=== PATIENT | female | born 1955 | race Caucasian/White ===

== ENCOUNTER 2017-10-30 16:17 | Emergency (ER) | payer OTHER, SELFPAY ==
[2017-10-30 16:23] VITALS: BP 155/85; PULSE 71; RESP 20; TEMP 36.9; O2SAT 95; BMI 28.7
--- NOTE | 2017-10-30 17:19 | [facility].EDBACK ---
ED Disposition Clinical Impression: Sciatica Qualifiers: Laterality: left Qualified Code(s): M54.32 - Sciatica, left side Disposition: Home, Self-Care Condition on Discharge: Good Instructions: DI for Low Back Pain Additional Instructions: Please take the medication prescribed as directed, if not better follow up with Dr Sampson. Discontinue the chiropractor sessions for now. Take Motrin 600mg every 6 hrs as needed for pain. Prescriptions: Tramadol HCl [Ultram 50mg tablet] 50 mg PO QIDP PRN #8 tab PRN Reason: Moderate Pain Referrals: Georgette Flores [Primary Care Provider] - Emanuel Sampson MD [Staff Physician] - Time of Disposition: 17:24 - Critical Care Critical Care Time: No Attestation: On 10/30/17, the high probability of a clinically significant, sudden or life threatening deterioration of the following system(s) required my full and direct attention, intervention and personal management. The time I documented below is in addition to time spent performing reported procedures but includes the following listed in this critical care notation. Medical Decision Making - Medical Records Medical records reviewed: Yes: I reviewed the patient's medical records. - Compa Inquiry Pt receiving controlled substance: No Vital Signs: 10/30/17 16:23 10/30/17 17:58 10/30/17 18:22 Temperature 98.4 F 98.8 F Temperature Source Oral Oral Pulse Rate 69 Pulse Rate [Right Brachial] 71 73 Respiratory Rate 20 18 20 Blood Pressure 149/69 Blood Pressure [Right Arm] 155/85 140/73 Blood Pressure Mean [Right Arm] 108 95 Blood Pressure Source Automatic Cuff Blood Pressure Source [Right Arm] Automatic Cuff Automatic Cuff Blood Pressure Position Sitting Blood Pressure Position [Right Arm] Sitting Sitting 02 Sat by Pulse Oximetry 95 95 Oxygen Delivery Method Room Air Room Air Room Air - Lab Data Lab Results 10/30/17 17:30: Urine Color Yellow, Urine Appearance Clear, Urine pH 5.5, Ur Specific [place] <= 1.005, Urine Protein Negative, Urine Glucose (UA) Negative, Urine Ketones Negative, Urine Blood Negative, Urine Nitrate Negative, Urine Bilirubin Negative, Urine Urobilinogen 0.2, Ur Leukocyte Esterase Negative, Urine RBC None, Urine WBC Occasional, Ur Squamous Epith Cells 5-10, Urine Bacteria Trace Orders (Tests/Meds): ED MEDICATIONS Discontinued Medications Generic Name Dose Route Start Last Admin Trade Name Barry PRN Reason Stop Dose Admin Meperidine HCl 25 mg 10/30/17 17:46 10/30/17 17:52 Meperidine 25mg/Ml 1ml Syringe IM 10/30/17 17:47 25 mg ONCE ONE Administration Methylprednisolone Acetate 80 mg 10/30/17 17:26 10/30/17 17:51 Depo-Medrol 80mg/Ml Vial IM 10/30/17 17:27 80 mg ONCE ONE Administration Morphine Sulfate 6 mg 10/30/17 17:44 Morphine 8mg/Ml Syringe IM 10/30/17 17:45 ONCE ONE Ondansetron HCl 6 mg 10/30/17 17:26 Zofran 4mg/2ml Vial IM 10/30/17 17:27 ONCE ONE Ondansetron HCl 4 mg 10/30/17 17:44 Zofran 4mg/2ml Vial IM 10/30/17 17:45 ONCE ONE Ondansetron HCl 4 mg 10/30/17 17:47 10/30/17 17:52 Zofran 4mg Odt SL 10/30/17 17:48 4 mg ONCE ONE Administration - Reevaluation(s) Time: 17:20 Reevaluation #1: Upon evaluation patient appears medically stable, improving, responding to the meds so far given. Instructed patient to follow-up with Dr. Sampson if not better within 2 days. Back Pain HPI - General Chief Complaint: Back Pain/Injury Stated Complaint: Back Pain Time Seen by Provider: 10/30/17 16:40 Mode of Arrival: Wheelchair Limitations: No Limitations Description of Symptoms (Recalled from ER Triage Doc. by RN): Pt reports L sided lower back pain radiating down L leg. Pt reports has been having pain x2 weeks, states went to the chiropractor soon after pain began and pt states she thinks the visit made pain worse. - History of Present Illness HPI Narrative: Patient has been seen by
--- NOTE | 2017-10-30 17:23 | ED_ITS ---
ED Disposition Clinical Impression: Sciatica Qualifiers: Laterality: left Qualified Code(s): M54.32 - Sciatica, left side Disposition: Home, Self-Care Condition on Discharge: Good Instructions: DI for Low Back Pain Additional Instructions: Please take the medication prescribed as directed, if not better follow up with Dr Sampson. Discontinue the chiropractor sessions for now. Take Motrin 600mg every 6 hrs as needed for pain. Prescriptions: Tramadol HCl [Ultram 50mg tablet] 50 mg PO QIDP PRN #8 tab PRN Reason: Moderate Pain Referrals: Georgette Flores [Primary Care Provider] - Emanuel Sampson MD [Staff Physician] - Time of Disposition: 17:24 - Critical Care Critical Care Time: No Attestation: On 10/30/17, the high probability of a clinically significant, sudden or life threatening deterioration of the following system(s) required my full and direct attention, intervention and personal management. The time I documented below is in addition to time spent performing reported procedures but includes the following listed in this critical care notation. Medical Decision Making - Medical Records Medical records reviewed: Yes: I reviewed the patient's medical records. - Compa Inquiry Pt receiving controlled substance: No Vital Signs: 10/30/17 16:23 10/30/17 17:58 10/30/17 18:22 Temperature 98.4 F 98.8 F Temperature Source Oral Oral Pulse Rate 69 Pulse Rate [Right Brachial] 71 73 Respiratory Rate 20 18 20 Blood Pressure 149/69 Blood Pressure [Right Arm] 155/85 140/73 Blood Pressure Mean [Right Arm] 108 95 Blood Pressure Source Automatic Cuff Blood Pressure Source [Right Arm] Automatic Cuff Automatic Cuff Blood Pressure Position Sitting Blood Pressure Position [Right Arm] Sitting Sitting 02 Sat by Pulse Oximetry 95 95 Oxygen Delivery Method Room Air Room Air Room Air - Lab Data Lab Results 10/30/17 17:30: Urine Color Yellow, Urine Appearance Clear, Urine pH 5.5, Ur Specific [place] <= 1.005, Urine Protein Negative, Urine Glucose (UA) Negative, Urine Ketones Negative, Urine Blood Negative, Urine Nitrate Negative, Urine Bilirubin Negative, Urine Urobilinogen 0.2, Ur Leukocyte Esterase Negative, Urine RBC None, Urine WBC Occasional, Ur Squamous Epith Cells 5-10, Urine Bacteria Trace Orders (Tests/Meds): ED MEDICATIONS Discontinued Medications Generic Name Dose Route Start Last Admin Trade Name Barry PRN Reason Stop Dose Admin Meperidine HCl 25 mg 10/30/17 17:46 10/30/17 17:52 Meperidine 25mg/Ml 1ml Syringe IM 10/30/17 17:47 25 mg ONCE ONE Administration Methylprednisolone Acetate 80 mg 10/30/17 17:26 10/30/17 17:51 Depo-Medrol 80mg/Ml Vial IM 10/30/17 17:27 80 mg ONCE ONE Administration Morphine Sulfate 6 mg 10/30/17 17:44 Morphine 8mg/Ml Syringe IM 10/30/17 17:45 ONCE ONE Ondansetron HCl 6 mg 10/30/17 17:26 Zofran 4mg/2ml Vial IM 10/30/17 17:27 ONCE ONE Ondansetron HCl 4 mg 10/30/17 17:44 Zofran 4mg/2ml Vial IM 10/30/17 17:45 ONCE ONE Ondansetron HCl 4 mg 10/30/17 17:47 10/30/17 17:52 Zofran 4mg Odt SL 10/30/17 17:48 4 mg ONCE ONE Administration - Reevaluation(s) Time: 17:20 Reevaluation #1: Up
[2017-10-30 17:45] LABS: Microscopic, Urine URINE MICROSCOPIC (MICROSCOPIC)
[2017-10-30 17:49] LABS: Appearance,Urine CLEAR (Clear); Bilirubin,Urine Negative (Negative); Blood, Urine Negative (Negative); Color,Urine YELLOW (Yellow); Glucose,Urine (UA) Negative (Negative); Ketones,Urine Negative (Negative); Leukocyte Esterase,Urine Negative (Negative); Nitrate,Urine Negative (Negative); PH,Urine 5.5 (5.0-8.5); Protein,Urine Negative (Negative); Specific Gravity, Urine <= 1.005 (1.005-1.030); Urobilinogen,Urine 0.2 EU/dl (0.2)
[2017-10-30 17:58] VITALS: BP 140/73; PULSE 73; RESP 18; O2SAT 95
[2017-10-30 18:02] LABS: Bacteria,Urine Trace /lpf; WBC,Urine Occasional #/hpf (0-3)
[2017-10-30 18:22] VITALS: BP 149/69; PULSE 69; RESP 20; TEMP 37.1; O2SAT 94
[2017-12-04 14:32] LABS: UTC Influenza A Antigen Negative (Negative); UTC Influenza B Antigen Negative (Negative)
== END 2017-10-30 18:22 | disposition home or self-care (01) ==
PROVIDERS: Nurse Practitioner; Emergency Provider Emergency Medicine; Family Provider Family Medicine; PCP Family Medicine
DX: M54.32 Sciatica, left side (principal); I10 Essential (primary) hypertension; Z79.82 Long term (current) use of aspirin; Z87.891 Personal history of nicotine dependence
CPT/HCPCS: 81001; 87804; 96372; 99282; J1040

== ENCOUNTER 2020-03-26 22:13 | Emergency (ER) | payer MEDICARE, MEDICAID, SELFPAY ==
[2020-03-26 22:14] VITALS: BP 128/73; PULSE 70; RESP 18; TEMP 36.7; O2SAT 96; BMI 30.7
[2020-03-26 22:53] VITALS: BP 134/74; PULSE 80; RESP 18; O2SAT 95
--- NOTE | 2020-03-26 23:04 | [facility].EDGENADL ---
ED Disposition Clinical Impression: Torticollis, acute Disposition: Home, Self-Care Condition on Discharge: Good Referrals: Georgette Flores [Primary Care Provider] - - Critical Care Critical Care Time: No Attestation: On 03/26/20, the high probability of a clinically significant, sudden or life threatening deterioration of the following system(s) required my full and direct attention, intervention and personal management. The time I documented below is in addition to time spent performing reported procedures but includes the following listed in this critical care notation. Medical Decision Making - Medical Records Medical records reviewed: Yes: I reviewed the patient's medical records. - Compa Inquiry Pt receiving controlled substance: No Vital Signs: 03/26/20 22:14 03/26/20 22:53 03/27/20 00:28 Temperature 98.0 F Temperature Source Oral Pulse Rate [Right Brachial] 70 80 64 Respiratory Rate 18 18 18 Blood Pressure [Right Arm] 128/73 134/74 138/65 Blood Pressure Mean [Right Arm] 91 94 89 02 Sat by Pulse Oximetry 96 95 95 Oxygen Delivery Method Room Air Room Air - Lab Data Lab Results 03/26/20 23:19: WBC 6.4, RBC 5.43 H, Hgb 15.7, Hct 47.3 H, MCV 87.2, MCH 29.0, MCHC 33.3, RDW 13.9, Plt Count 70 L, MPV 9.7, Neut % (Auto) 63.7, Lymph % (Auto) 26.3, [place] % (Auto) 4.1, Eos % (Auto) 3.3, Baso % (Auto) 2.6 H, Neut # (Auto) 4.1, Lymph # (Auto) 1.7, [place] # (Auto) 0.3, Eos # (Auto) 0.2, Baso # (Auto) 0.2 03/26/20 23:19: Sodium 140, Potassium 5.4 H, Chloride 98, Carbon Dioxide 32 H, Anion Gap 15.4 H, BUN 12, Creatinine 0.60, Estimated Creat Clear 76, Estimated GFR 100, Est GFR ( Amer) 121, Glucose 100, Calcium 9.7 Result diagrams: 03/26/20 23:19 03/26/20 23:19 Orders (Tests/Meds): ED MEDICATIONS Discontinued Medications Generic Name Dose Route Start Last Admin Trade Name Freq PRN Reason Stop Dose Admin Acetaminophen 1,000 mg 03/26/20 23:03 03/26/20 23:18 Tylenol 500mg Tablet PO 03/26/20 23:04 1,000 mg ONCE ONE Administration Cyclobenzaprine HCl 10 mg 03/26/20 23:03 03/26/20 23:18 Flexeril 10mg Tablet PO 03/26/20 23:04 10 mg ONCE ONE Administration Ibuprofen 800 mg 03/26/20 23:03 03/26/20 23:17 Motrin 400mg Tablet PO 03/26/20 23:04 800 mg ONCE ONE Administration Ioversol 75 ml 03/27/20 00:12 03/27/20 00:13 Rad-Optiray 350 100ml Vial IV 03/27/20 00:13 75 ml ONCE ONE Administration Protocol Sodium Chloride 10 ml 03/27/20 00:12 03/27/20 00:13 Rad-Saline Flush 10ml Syringe IV 03/27/20 00:13 10 ml ONCE ONE Administration ORDERS Category Date Time Status CT soft tissue neck w con Stat Cat Scan 03/26/20 23:07 Taken Medical Decision Narrative: Patient arrives for neck pain. Patient has no history of trauma, symptoms have been going on for the past 4 days and progressively worsening. Due to this there is concern for other pathology. CT scan of neck was ordered with IV contrast, labs within normal limits. Potassium was hemolyzed however kidney function was normal, low concern for true hyperkalemia, patient would not like further blood draw at this time. Patient CT scan was normal limits, patient was given Tylenol and ibuprofen, on repeat assessment patient's pain was improved. Patient was amenable to discharge and follow-up with her primary care doctor for further work-up. General Adult HPI - General Chief complaint: PAIN Stated complaint: Neck pain for 4 days Time Seen by Provider: 03/26/20 22:20 Mode of Arrival: Ambulatory Limitations: No Limitations Description of Symptoms (Recalled from ER Triage Doc. by RN): since pt c/o left head pain that radiates into neck. denies any changes of vision no dizziness. turning neck to left makes pain worse. reports no injury - History of Present Illness HPI narrative: Patient patient presents for pain in neck, left side, nonradiating, patient has no associated symp
--- NOTE | 2020-03-26 23:07 | CT_ITS ---
PROCEDURE: CT SOFT TISSUE NECK W CON CLINICAL HISTORY: L NECK TTP LATERAL Neck pain and tenderness, pain with movement COMPARISON: No exams were available for comparison TECHNIQUE: Oral Contrast: None IV Contrast: None Axial images obtained with sagittal and coronal reformats. All CT scans at the facility use one or more dose reduction, viz: automated exposure control, ma/kV adjustment per patient size (including targeted exams where dose is matched to indication, i.e. head), or iterative reconstruction technique. FINDINGS: No obvious nasopharyngeal mass. There is slight asymmetric increased soft tissue density in the left hypopharynx which may be due to nondistention or some lymphoid hyperplasia. Direct visualization suggested. No abscess or mass. There are few scattered small cervical lymph nodes. Lung apices are clear. There is degenerative disc disease at C4-C5 and C5-C6 with small posterior osteophytes at C4-C5 and C5-C6. Calcified granuloma is present in the right upper lobe IMPRESSION: No acute finding. There is some minimal asymmetric soft tissue density in the left hypopharynx posteriorly which could be due to nondistention or lymphoid hyperplasia. Please correlate with direct visualization to exclude an underlying mucosal lesion Dictated by: Eliseo Pacheco MD 03/27/2020 07:06 Eliseo Pacheco MD in [facility] 03/27/2020 07:06
[2020-03-26 23:30] LABS: Basophils # 0.2 K/mm3 (0-0.2); Basophils % 2.6 % (0.1-2.0); Eosinophils # 0.2 K/mm3 (0.0-0.4); Eosinophils % 3.3 % (0.1-12.0); Hematocrit 47.3 % (37.0-47.0); Hemoglobin 15.7 g/dL (12.2-16.2); Lymphocytes # 1.7 K/mm3 (0.7-4.5); Lymphocytes % 26.3 % (10-50); Mean Corpuscular HGB Conc 33.3 g/dL (31.8-35.4); Mean Corpuscular Volume 87.2 fl (81-99); Mean Platelet Volume 9.7 fl (7.4-10.4); Monocytes # 0.3 K/mm3 (0.1-1.0); Monocytes % 4.1 % (1.7-9.3); Neutrophils # 4.1 K/mm3 (1.8-7.8); Neutrophils % 63.7 % (37.0-80.0); Platelet Count 70 K/mm3 (142-424); Red Blood Count 5.43 M/mm3 (4.20-5.40); Red Cell Distribution Width 13.9 % (11.5-17.5); White Blood Count 6.4 K/mm3 (4.8-10.8)
[2020-03-26 23:38] LABS: Anion Gap 15.4 mEq/L (5-15); Blood Urea Nitrogen 12 mg/dl (7-17); Calcium 9.7 mg/dl (8.4-10.2); Carbon Dioxide 32 mmol/L (22.0-30.0); Chloride 98 mmol/L (98-107); Creatinine Clearance Estimated 76 mL/min (50-200); Estimated Glomerular Filt Rate 100 ml/min (>60); GFR (African American) 121 ML/MIN (>60); Glucose 100 mg/dl (74-100); Potassium 5.4 mmoL/L (3.5-5.1); Sodium 140 mmol/L (136-145)
[2020-03-27 00:28] VITALS: BP 138/65; PULSE 64; RESP 18; O2SAT 95
[2020-03-27 01:11] VITALS: BP 122/70; PULSE 65; RESP 18; TEMP 36.6; O2SAT 95
== END 2020-03-27 01:13 | disposition home or self-care (01) ==
PROVIDERS: Emergency Provider Emergency Medicine; PCP Family Medicine
DX: M43.6 Torticollis (principal); I10 Essential (primary) hypertension; Z87.891 Personal history of nicotine dependence; Z79.899 Other long term (current) drug therapy
CPT/HCPCS: 70491; 80048; 85025; 99283; Q9967